=== PATIENT | female | born 1945 | race African-American/Black ===

== ENCOUNTER 2018-09-28 10:25 | Inpatient (IN) | payer OTHER ==
[~2018-09-28] VITALS: Ht 170.2 cm; Wt 84.8 kg
[2018-09-28 11:49] LABS: BASOPHILS % 0.3 % (0.0-2.0); EOSINOPHILS % 0.3 % (0.0-5.0); HEMATOCRIT. 37.8 % (36.0-48.0); HEMOGLOBIN. 12.2 g/dL (12.0-16.0); LYMPHOCYTES % 15.5 % (20.0-50.0); MEAN CORPUSCULAR HEMOGLOBIN 32.2 pg (28.0-32.0); MEAN CORPUSCULAR VOLUME 99.7 fL (81.0-99.0); MEAN PLATELET VOLUME 9.3 fl (7.4-10.4); MONOCYTES % 6.2 % (2.0-8.0); NEUTROPHILS % 77.7 % (40.0-76.0); PLATELET 308 x1000/uL (130-400); RED BLOOD CELL COUNT 3.79 mill/uL (4.2-5.4); RED CELL DISTRIBUTION WIDTH 13.1 % (11.6-14.6)
[2018-09-28 11:54] LABS: CHLORIDE 104 mEq/L (98-107)
[2018-09-28 12:06] LABS: T4 FREE 1.22 ng/dL (0.76-1.46)
[2018-09-28] MEDS ORDERED: ASPIRIN 81MG TABLET PO ONE (12:30)
[2018-09-28 13:24] LABS: INR 1.1; PARTIAL THROMBOPLASTIN TIME 25.6 sec (23.4-31.0); PROTHROMBIN TIME 11.1 sec (9.1-11.1)
[2018-09-28] MEDS ORDERED: IOHEXOL-350 100 ML BOTTLE ONE (13:45)
[2018-09-28] MEDS ORDERED: IPRATROPIUM/ALBUTEROL 0.5-3(2.5)MG/3ML NEB HHN PRN (14:45)
[2018-09-28] MEDS ORDERED: LORAZEPAM 0.5MG TABLET PO PRN (15:30)
[2018-09-28] MEDS ORDERED: NA PHOS,M-B/NA PHOS,DI-BA ENEMA 118ML PR PRN (15:30)
[2018-09-28] MEDS ORDERED: ONDANSETRON HCL 4MG/2ML INJ IV PRN (15:30)
[2018-09-28] MEDS ORDERED: ACETAMINOPHEN 325MG TABLET PO PRN (15:30)
[2018-09-28] MEDS ORDERED: MAGNESIUM/ALUMINUM HYDROXIDE/SIMETHICONE 30ML UDC PO PRN (15:30)
[2018-09-28] MEDS ORDERED: GUAIFENESIN 200MG/10ML SUGAR FREE UDC PO PRN (15:30)
[2018-09-28] MEDS ORDERED: ZOLPIDEM TARTRATE 5MG TABLET PO PRN (15:30)
[2018-09-28] MEDS ORDERED: DOCUSATE SODIUM 100MG CAPSULE PO PRN (15:30)
[2018-09-28] MEDS ORDERED: HEPARIN BOLUS PRN aPTT <36 IV (16:15)
[2018-09-28] MEDS ORDERED: HEPARIN BOLUS PRN aPTT 37-44 IV (16:15)
[2018-09-28] MEDS ORDERED: HEPARIN 80 UNITS/KG BOLUS IV NR (16:30)
[2018-09-28] MEDS: HEPARIN 25,000 UNITS PREMIX 500 ML IV SCH (17:18)
[2018-09-28] MEDS: CLONIDINE 0.1MG TABLET PO PRN (22:33)
[2018-09-29] VITALS (21 sets, daily range): BP systolic 97–202; BP diastolic 34–161
[2018-09-29] MEDS ORDERED: QUET200T MT (01:17)
[2018-09-29] MEDS ORDERED: BUSP-29 MT (01:17)
[2018-09-29] MEDS ORDERED: LISI-604 MT (01:17)
[2018-09-29] MEDS ORDERED: DULO60CA44 MT (01:17)
[2018-09-29] MEDS ORDERED: LEVO50TA MT (01:17)
[2018-09-29] MEDS: DEXT 5%/0.45% NACL 1000ML 1,000 ML IV SCH ×3 (01:21→21:05)
[2018-09-29 01:34] LABS: CLARITY URINE CLEAR (CLEAR); COLOR URINE YELLOW (YELLOW); KETONES URINE NEGATIVE (NEGATIVE); LEUKOCYTE ESTERASE URINE 1+ (NEGATIVE); NITRITE URINE NEGATIVE (NEGATIVE); OCCULT BLOOD URINE NEGATIVE (NEGATIVE); PROTEIN URINE NEGATIVE (NEGATIVE); SPECIFIC GRAVITY URINE 1.042 (1.005-1.030); UROBILINOGEN URINE 0.2 E.U./dL (0.2-1.0)
[2018-09-29 01:43] LABS: *AMPHETAMINES SCREEN URINE NEGATIVE (NEGATIVE)
[2018-09-29 01:44] LABS: *BARBITURATES SCREEN URINE NEGATIVE (NEGATIVE); *BENZODIAZEPINES SCREEN URINE NEGATIVE (NEGATIVE); *COCAINE SCREEN URINE NEGATIVE (NEGATIVE); METHADONE URINE SCREEN NEGATIVE (NEGATIVE); OPIATES URINE SCREEN PRESUMTIVE POSITIVE (NEGATIVE); PHENCYCLIDINE URINE SCREEN NEGATIVE (NEGATIVE)
[2018-09-29 01:45] LABS: CANNABINOID URINE SCREEN NEGATIVE (NEGATIVE)
[2018-09-29] MEDS: MORPHINE SULFATE 4 MG/ML CPJ (NOT FOR IM USE) IV PRN ×4 (04:46→23:29)
[2018-09-29] MEDS ORDERED: ASPIRIN 325MG EC TABLET PO SCH (09:00)
[2018-09-29] MEDS: FAMOTIDINE 20MG TABLET PO SCH (10:51)
[2018-09-29] MEDS: HEPARIN 25,000 UNITS PREMIX 500 ML IV SCH (10:51)
[2018-09-29] MEDS: METOPROLOL TARTRATE 25MG TABLET PO SCH ×2 (10:54→21:00)
[2018-09-29] MEDS ORDERED: ALTEPLASE 10 MG in SODIUM CHLORIDE 0.9% 250 ML IV SCH (11:00)
[2018-09-29] MEDS: GUAIFENESIN/DM 600MG/30MG ER TAB 12HR PO SCH ×2 (11:01→21:00)
[2018-09-29] MEDS ORDERED: ALTEPLASE 100 MG in BAG 1 EACH IV NR (11:30)
[2018-09-29] MEDS: CLONIDINE 0.1MG TABLET PO PRN (15:24)
[2018-09-29] MEDS: TRAMADOL 50MG TABLET PO PRN (18:04)
[2018-09-29] MEDS: NICARDIPINE 50 MG in SODIUM CHLORIDE 0.9% 230 ML IV PRN (19:20)
[2018-09-30] VITALS (47 sets, daily range): BP systolic 94–165; BP diastolic 15–141
[2018-09-30] MEDS: ENOXAPARIN 80MG/0.8ML SYR SUBCUT SCH ×2 (02:09→15:06)
[2018-09-30] MEDS: IPRATROPIUM/ALBUTEROL 0.5-3(2.5)MG/3ML NEB HHN SCH ×4 (02:23→21:02)
[2018-09-30] MEDS: NICARDIPINE 50 MG in SODIUM CHLORIDE 0.9% 230 ML IV PRN (05:10)
[2018-09-30 05:35] LABS: BASOPHILS % 0.6 % (0.0-2.0); EOSINOPHILS % 0.4 % (0.0-5.0); HEMATOCRIT. 38.3 % (36.0-48.0); HEMOGLOBIN. 12.8 g/dL (12.0-16.0); LYMPHOCYTES % 30.9 % (20.0-50.0); MEAN CORPUSCULAR HEMOGLOBIN 32.6 pg (28.0-32.0); MEAN CORPUSCULAR VOLUME 97.4 fL (81.0-99.0); MEAN PLATELET VOLUME 9.3 fl (7.4-10.4); MONOCYTES % 11.3 % (2.0-8.0); NEUTROPHILS % 56.8 % (40.0-76.0); PLATELET 244 x1000/uL (130-400); RED BLOOD CELL COUNT 3.93 mill/uL (4.2-5.4)
[2018-09-30 05:38] LABS: INR 1.5; PROTHROMBIN TIME 14.7 sec (9.1-11.1)
[2018-09-30 05:46] LABS: CHLORIDE 104 mEq/L (98-107)
[2018-09-30 05:56] LABS: CREATINE KINASE 58 IU/L (26-192)
[2018-09-30 05:59] LABS: CREATINE KINASE MB FRACTION 8.2 ng/mL (0.5-3.6)
[2018-09-30] MEDS: DEXT 5%/0.45% NACL 1000ML 1,000 ML IV SCH (06:24)
[2018-09-30] MEDS: METOPROLOL TARTRATE 25MG TABLET PO SCH ×2 (08:47→20:45)
[2018-09-30] MEDS: MORPHINE SULFATE 4 MG/ML CPJ (NOT FOR IM USE) IV PRN (08:47)
[2018-09-30] MEDS: GUAIFENESIN/DM 600MG/30MG ER TAB 12HR PO SCH ×2 (08:47→20:44)
[2018-09-30] MEDS: FAMOTIDINE 20MG TABLET PO SCH (08:48)
[2018-09-30] MEDS ORDERED: BENZONATATE 100MG CAPSULE PO PRN (09:45)
[2018-09-30] MEDS ORDERED: POTASSIUM CHLORIDE 20MEQ TABLET SR PO NR (10:30)
[2018-09-30] MEDS ORDERED: MAGNESIUM 1 G PREMIX 100 ML IV SCH (10:30)
[2018-09-30] MEDS ORDERED: DOCUSATE SODIUM 100MG CAPSULE PO SCH (12:00)
[2018-09-30] MEDS: TRAMADOL 50MG TABLET PO PRN (12:48)
[2018-09-30] MEDS ORDERED: MULTIVITAMINS,THER W-MINERALS TABLET PO SCH (14:15)
[2018-09-30] MEDS ORDERED: MORPHINE SULFATE 4 MG/ML CPJ (NOT FOR IM USE) IV PRN (14:45)
[2018-09-30] MEDS ORDERED: BUSPIRONE HCL 10MG TABLET PO SCH (21:00)
[2018-09-30] MEDS ORDERED: ATORVASTATIN CALCIUM 20MG TABLET PO SCH (21:00)
[2018-09-30] MEDS ORDERED: QUETIAPINE FUMARATE 50MG TABLET PO SCH (21:00)
[2018-09-30] MEDS ORDERED: AMLODIPINE 5MG TABLET PO SCH (21:00)
[2018-10-01] MEDS ORDERED: DULOXETINE HCL 60MG DR CAPSULE PO SCH (09:00)
[2018-10-01] MEDS ORDERED: ASPIRIN 81MG TABLET PO SCH (09:00)
== END 2018-09-30 22:30 | disposition short-term general hospital (02) | DRG 280 ==
LOC: ER 10:25 → EDBEDREQSVC 13:51 → CVICU 14:12 → EDBEDREQTM 14:15 → EDBEDREQ 14:15 → ENRESERV 16:22 → EDBEDREQ 17:14 → EDBEDREQTM 20:49 → EDBEDREQSVC 20:49 → ENRESERV 22:50 → 7WST 23:57 → MICUSO 09-29 16:49
PROVIDERS: ADMIT Internal Medicine; ATTEND Internal Medicine
DX: I21.4 Non-ST elevation (NSTEMI) myocardial infarction (principal); I26.99 Other pulmonary embolism without acute cor pulmonale; J96.00 Acute respiratory failure, unspecified whether with hypoxia or hypercapnia; J98.11 Atelectasis; I82.432 Acute embolism and thrombosis of left popliteal vein; E44.1 Mild protein-calorie malnutrition; D68.59 Other primary thrombophilia; I27.20 Pulmonary hypertension, unspecified; I10 Essential (primary) hypertension; E03.9 Hypothyroidism, unspecified; E11.65 Type 2 diabetes mellitus with hyperglycemia; E87.6 Hypokalemia; J45.909 Unspecified asthma, uncomplicated; Z66 Do not resuscitate; Z90.49 Acquired absence of other specified parts of digestive tract; Z98.84 Bariatric surgery status; Z91.041 Radiographic dye allergy status; Z79.02 Long term (current) use of antithrombotics/antiplatelets; Z79.4 Long term (current) use of insulin; Z86.73 Personal history of transient ischemic attack (TIA), and cerebral infarction without residual deficits; Z68.29 Body mass index [BMI] 29.0-29.9, adult
CPT/HCPCS: 36415; 71045; 71275; 80061; 80305; 82550; 82553; 83036; 83735; 83880; 84439; 84443; 84484; 85379; 85384; 93005; 93306; 93970; 94640; 96374; 99285; J1644; J1650; J2270; J2997; J3475; J3490; J7050; J7620; Q9967

== ENCOUNTER 2019-07-10 10:42 | Emergency (ER) | payer OTHER ==
[~2019-07-10] VITALS: Ht 165.1 cm; Wt 70.0 kg
[2019-07-10] MEDS ORDERED: SODIUM CHLORIDE 0.9% 1000ML BAG (SEPSIS BOLUS) IV ONE (11:15)
[2019-07-10 11:51] LABS: BASOPHILS % 1.2 % (0.0-2.0); EOSINOPHILS % 3.4 % (0.0-5.0); HEMATOCRIT. 39.9 % (36.0-48.0); HEMOGLOBIN. 13.3 g/dL (12.0-16.0); MEAN CORPUSCULAR VOLUME 101.6 fL (81.0-99.0); MEAN PLATELET VOLUME 9.7 fl (7.4-10.4); NEUTROPHILS % 56.4 % (40.0-76.0); PLATELET 277 x1000/uL (130-400); RED BLOOD CELL COUNT 3.92 mill/uL (4.2-5.4); RED CELL DISTRIBUTION WIDTH 13.2 % (11.6-14.6)
[2019-07-10 11:53] LABS: PROTHROMBIN TIME 10.6 sec (9.6-11.0)
[2019-07-10 11:54] LABS: CHLORIDE 105 mEq/L (98-107)
[2019-07-10] MEDS ORDERED: PIPERACILLIN/TAZ 3.375G PREMIX 50 ML IV ONE (12:30)
[2019-07-10] MEDS ORDERED: VANCOMYCIN 1 G PREMIX 200 ML IV ONE (12:30)
[2019-07-10 15:00] VITALS: BP 108/58
[2019-07-10 15:10] LABS: CLARITY URINE CLEAR (CLEAR); COLOR URINE YELLOW (YELLOW); KETONES URINE NEGATIVE (NEGATIVE); LEUKOCYTE ESTERASE URINE TRACE (NEGATIVE); NITRITE URINE NEGATIVE (NEGATIVE); OCCULT BLOOD URINE NEGATIVE (NEGATIVE); PH URINE 6.5 (4.5-8.0); PROTEIN URINE NEGATIVE (NEGATIVE); SPECIFIC GRAVITY URINE 1.003 (1.005-1.030); UROBILINOGEN URINE 0.2 E.U./dL (0.2-1.0)
== END 2019-07-10 15:21 | disposition home or self-care (01) ==
LOC: ER 10:42 → CANBEDREQ 17:57
DX: I95.9 Hypotension, unspecified (principal); I10 Essential (primary) hypertension; E03.9 Hypothyroidism, unspecified; J45.909 Unspecified asthma, uncomplicated; Z86.73 Personal history of transient ischemic attack (TIA), and cerebral infarction without residual deficits
CPT/HCPCS: 36415; 71045; 80053; 81003; 83605; 84145; 84484; 85025; 85610; 87040; 87086; 87804; 93005; 96361; 96365; 96366; 96368; 99291; J2543; J3370; J7030